=== PATIENT | female | born 2000 | race Caucasian/White ===

== ENCOUNTER 2019-01-04 21:18 | Emergency (ER) | payer OTHER ==
[~2019-01-04] VITALS: Ht 160 cm; Wt 68.0 kg
[2019-01-04 21:26] VITALS: BP 132/71
--- NOTE | 2019-01-04 21:26 | NUR ---
TO BED # 12 AMBULATORY , REPORT GIVEN TO SOURAV SAENZ
--- NOTE | 2019-01-04 21:35 | NUR ---
PT BIB SELF C/O HEADACHE X2 MONTHS AND NAUSEA X1 MONTH. PT STATES INTERMITTENT HEADACHE AND NAUSEA W/O VOMITING, +DIZZINESS, PAIN 0/10 AT THIS TIME. PT STATES IUD PLACE 04/01. CLEAR SPEECH, BREATHING EQUAL AND UNLABORED. BOWEL SOUNDS ACTIVE X4 QUAD. +MOIST MUCOUS MEMBRANES. PT ACTING APPROPRIATLY. PT IN GOWN, IN BED; BED IN LOWER LOCKED POSITION. PENDING ER MD OLIVER. PT ENCOURAGED TO PROVIDE URINE SAMPLE. PMH: DENIES RX: DENIES
[2019-01-04] MEDS ORDERED: ONDANSETRON 4 MG ODT PO ONE (22:20)
[2019-01-04] MEDS ORDERED: KETOROLAC 60 MG/2 ML VIAL IM ONE (22:20)
[2019-01-04 23:31] VITALS: BP 132/71
--- NOTE | 2019-01-04 23:32 | NUR ---
Patient discharged with v/s stable. Written and verbal after care instructions given and explained. Patient alert, oriented and verbalized understanding of instructions. Ambulatory with steady gait. All questions addressed prior to discharge. ID band removed. Patient advised to follow up with PMD. Rx of ZOFRAN, MOTRIN given. Patient educated on indication of medication including possible reaction and side effects. Opportunity to ask questions provided and answered.
== END 2019-01-04 23:31 | disposition home or self-care (01) ==
LOC: MED 21:18
DX: G44.209 Tension-type headache, unspecified, not intractable (principal)
CPT/HCPCS: 81002; 81025; 96372; 99283; J1885; Q0162

== ENCOUNTER 2019-03-08 11:27 | Emergency (ER) | payer OTHER ==
[~2019-03-08] VITALS: Ht 157.5 cm; Wt 61.7 kg
[2019-03-08 11:36] VITALS: BP 134/69
--- NOTE | 2019-03-08 11:54 | NUR ---
18 Y FEMALE BIB SELF C/O ABD PAIN STARTING AT 02:00 THIS MORNING WHILE AT WORK ALONG WITH DAIRRHEA AND NAUSEA, -VOMITING. PT REPORTS SHARP PAIN THROUGHOUT ENTIRE ABD 05/25. PT TX WITH TYLENOL WITH RELIEF. PT REPORTS FEVER OF 100.5 LAST NIGHT, CURRENT TEMP IS 98.6 ORAL. LAST BM OF DIARRHEA THIS AM. ABDOMEN IS SOFT AND FLAT, BOWEL SOUNDS ACTIVE IN ALL 4 QUADRANTS. VSS AT THIS TIME. PT AA0X4. BED IS DOWN, LOCKED, BED RAIL X 1, ERMD TO SEE PT. MEDHX:DENIES RX:TYLENOL
--- NOTE | 2019-03-08 12:17 | NUR ---
DR SAINZ AT BEDSIDE
[2019-03-08] MEDS ORDERED: DICYCLOMINE 20 MG/2 ML VIAL IM ONE (12:20)
[2019-03-08] MEDS ORDERED: ONDANSETRON 4 MG ODT PO ONE (12:20)
--- NOTE | 2019-03-08 12:30 | NUR ---
PT AMB TO RESTROOM WITH STEADY GAIT
[2019-03-08] MEDS ORDERED: KETOROLAC 30 MG/ML VIAL IM ONE (13:35)
--- NOTE | 2019-03-08 13:56 | NUR ---
VSS AT THIS TIME. PT AA0X4.
--- NOTE | 2019-03-08 14:30 | NUR ---
PAIN 0/10 AT THIS TIME
[2019-03-08 14:37] VITALS: BP 132/68
--- NOTE | 2019-03-08 14:37 | NUR ---
Patient discharged with v/s stable. Written and verbal after care instructions given and explained. Patient alert, oriented and verbalized understanding of instructions. Ambulatory with steady gait. All questions addressed prior to discharge. ID band removed. Patient advised to follow up with PMD. Rx of CHAVA MALCOLM given. Patient educated on indication of medication including possible reaction and side effects. Opportunity to ask questions provided and answered. PT GIVEN EXCUSE FROM WORK THROUGH 03/10/19, ADVISED TO REST AND HYDRATE.
== END 2019-03-08 14:37 | disposition home or self-care (01) ==
LOC: MED 11:27
DX: R10.84 Generalized abdominal pain (principal); R19.7 Diarrhea, unspecified; R50.9 Fever, unspecified; R42 Dizziness and giddiness; R11.0 Nausea
CPT/HCPCS: 81002; 81025; 96372; 99283; J0500; J1885; Q0162

== ENCOUNTER 2019-03-09 | Emergency (ER) | payer OTHER ==
[~2019-03-09] VITALS: Ht 157.5 cm; Wt 61.7 kg
[2019-03-09 00:15] VITALS: BP 112/65
--- NOTE | 2019-03-09 00:15 | NUR ---
TO BED # 06 AMBULATORY
[2019-03-09] MEDS ORDERED: NACL 0.9% 1,000 ML IV ONE (00:25)
--- NOTE | 2019-03-09 00:27 | NUR ---
Dr. Lerner evaluating patient at bedside.
--- NOTE | 2019-03-09 00:30 | NUR ---
18 Y/O F PRESENTED TO ED WITH C/O BLOOD IN STOOL. PT NOTICED BLOOD IN STOOL YESTERDAY. PT STATED "I'VE BEEN CONSTIPATED FOR A FEW DAYS. I STOPPED TAKING THE PAIN MEDICATION THE DOCTOR GAVE ME BECAUSE IT GAVE ME DIARRHEA." +NAUSEA. BOWEL SOUNDS PRESENT [id number]. ABDOMEN NON-TENDER. ERMD NOTIFIED. WILL CONTINUE TO MONITOR.
[2019-03-09 00:44] LABS: BASOPHILS % (AUTO) 0.3 % (0.0-2.0); EOSINOPHILS % (AUTO) 0.2 % (0.0-4.0); HEMOGLOBIN 13.2 g/dL (12.0-16.0); LYMPHOCYTES # (AUTO) 1.1 K/uL (2.5-16.5); LYMPHOCYTES % (AUTO) 18.7 % (20.5-51.1); MEAN CORPUSCULAR HEMOGLOBIN 30 pg (27-31); MEAN CORPUSCULAR HGB CONC 34 g/dL (33-37); MEAN CORPUSCULAR VOLUME 88.3 fL (80-94); MONOCYTES # (AUTO) 0.5 K/uL (0.8-1.0); MONOCYTES % (AUTO) 8.5 % (1.7-9.3); NEUTROPHILS # (AUTO) 4.4 K/uL (1.8-7.7); NEUTROPHILS % (AUTO) 72.3 % (42.2-75.2); PLATELET COUNT (AUTO) 183 K/uL (140-450); RED BLOOD CELL COUNT(AUTO) 4.42 MIL/uL (4.20-5.40); RED CELL DISTRIBUTION WIDTH 13.9 % (11.6-13.7); WHITE BLOOD COUNT (AUTO) 6.1 K/uL (4.5-11.0)
[2019-03-09 01:04] LABS: ANION GAP 13.5 (8-16); CARBON DIOXIDE 24.3 mmol/L (21-32); CREATININE 1.1 mg/dL (0.6-1.3); POTASSIUM 3.8 mmol/L (3.5-5.1)
[2019-03-09 01:09] LABS: ALBUMIN 3.6 g/dL (3.4-5.0); TOTAL BILIRUBIN 0.6 mg/dL (0.0-1.0)
--- NOTE | 2019-03-09 01:15 | NUR ---
XRAY AT BEDSIDE
[2019-03-09 01:44] VITALS: BP 112/65
--- NOTE | 2019-03-09 01:44 | NUR ---
Patient discharged with v/s stable. Written and verbal after care instructions given and explained. Patient alert, oriented and verbalized understanding of instructions. Ambulatory with steady gait. All questions addressed prior to discharge. ID band removed. Patient advised to follow up with PMD. Rx of IBUPROFEN, MIRALAX, WAS given. Patient educated on indication of medication including possible reaction and side effects. Opportunity to ask questions provided and answered. PT STATED HER PAIN DECREASED TO 3/10 PRIOR TO D/C. PT WAS EDUCATED ON OUTPATIENT CARE . PT UNDERSTOOD.
== END 2019-03-09 01:44 | disposition home or self-care (01) ==
LOC: MED
DX: K59.00 Constipation, unspecified (principal); K92.0 Hematemesis
CPT/HCPCS: 36415; 74018; 80053; 81025; 85025; 93005; 96360; 99284; J7030; Q0092; 81002

== ENCOUNTER 2019-04-04 13:01 | Emergency (ER) | payer OTHER ==
[~2019-04-04] VITALS: Ht 157.5 cm; Wt 65.8 kg
[2019-04-04 13:25] VITALS: BP 98/56
[2019-04-04 14:26] LABS: APPEARANCE,URINE SL CLOUDY (CLEAR); BILIRUBIN,URINE NEGATIVE (NEGATIVE); BLOOD, URINE 1+ (NEGATIVE); COLOR,URINE YELLOW (YELLOW); LEUKOCYTE ESTERASE ,URINE 1+ (NEGATIVE); NITRITE, URINE NEGATIVE (NEGATIVE); UGLUCOSE NEGATIVE (NEGATIVE)
[2019-04-04 14:39] LABS: WBC,URINE 16-25 (MOD) /HPF (0-5)
[2019-04-04 14:44] LABS: BARBITURATE, URINE NEG. ng/ml (NEG <=200); BENZODIAZEPINE, URINE NEG. ng/mL (NEG <=200); CANNABINOID, URINE NEG. ng/mL (NEG <=50); COCAINE, URINE NEG. ng/mL (NEG <=300); OPIATE, URINE NEG. ng/mL (NEG <=2000); PHENCYCLIDINE SCREEN,URINE NEG. ng/mL (NEG <=25)
[2019-04-04] MEDS ORDERED: KETOROLAC 60 MG/2 ML VIAL IM ONE (15:30)
[2019-04-04] MEDS ORDERED: cefTRIAXone 1,000 MG in LIDOCAINE 1% ***ER ONLY *** 2.1 ML IM ONE (15:30)
[2019-04-04] MEDS ORDERED: hydrOXYzine HCL 25 MG TAB PO ONE (15:30)
[2019-04-04] MEDS ORDERED: LEVOFLOXACIN 500 MG TAB PO ONE (15:30)
--- NOTE | 2019-04-04 15:30 | NUR ---
BIB SELF. C/O DYSURIA X 1 WEEK, LEFT BREAST SORENESS X 4 DAYS, VAGINAL ITCHING, ABDOMINAL PAIN X 2 DAYS NAUSEA. PMH: DENIES MED RX: ZOFRAN ALLERGIES: DENIES
[2019-04-04] MEDS ORDERED: cefTRIAXone 1,000 MG VIAL ONE (15:57)
[2019-04-04] MEDS ORDERED: LIDOCAINE MPF 1% - 5 mL VIAL 5 ML ONE (15:59)
[2019-04-04 16:35] VITALS: BP 102/60
--- NOTE | 2019-04-04 16:35 | NUR ---
Patient discharged with v/s stable. Written and verbal after care instructions given and explained. Patient alert, oriented and verbalized understanding of instructions. Ambulatory with steady gait. All questions addressed prior to discharge. ID band removed. Patient advised to follow up with PMD. Rx of ACYCLOVIR, LEVAQUIN given. Patient educated on indication of medication including possible reaction and side effects. Opportunity to ask questions provided and answered.
--- NOTE | 2019-04-07 08:56 | NUR ---
Pt called, no answer, left voicemail to return call.
== END 2019-04-04 16:35 | disposition home or self-care (01) ==
LOC: MED 13:01
DX: N30.90 Cystitis, unspecified without hematuria (principal)
CPT/HCPCS: 80305; 81001; 81025; 87086; 87186; 96372; 99283; J0696; J1885; J2001

== ENCOUNTER 2019-07-27 21:28 | Emergency (ER) | payer OTHER ==
[~2019-07-27] VITALS: Ht 157.5 cm; Wt 65.8 kg
[2019-07-27 21:50] VITALS: BP 109/57
--- NOTE | 2019-07-27 21:50 | NUR ---
TO BED # 10 AMBULATORY
--- NOTE | 2019-07-27 22:13 | NUR ---
18 Y/O FEMALE PRESENTS TO ED, C/O OF N/V X1 WEEK. PT STATES HAVING FLU LIKE SYMPTOMS FOR 1 WEEK WITH BLOODY MUCUS AND SPIT. DENIES ANY FLU SYMPTOMS. PT DENIES ANY ABDOMINAL PAIN. BS ACTIVE X4 QUADRANTS. LAST VOMITING EPISODE WAS 10MIN PRIOR TO TRIAGE ASSESSMENT. PT VSS. ERMD AWARE. WILL CONTINUE TO MONITOR.
[2019-07-27 22:53] VITALS: BP 119/86
--- NOTE | 2019-07-27 22:53 | NUR ---
PT DISCHARGED WITH PAPERWORK. RX FLONASE. EDUCATED PT REGARDING MEDICATION AND S/E. EDUCATED PT REGARDING D/C DIAGNOSIS AND INSTRUCTIONS. PT VERBALIZED UNDERSTANDING OF TEACHING. TOLD PT TO FOLLOW UP WITH PCP AND AND WHEN TO RETURN TO ED. PT VSS. DENIES ANY PAIN. NO N/V. ALL QUESTIONS ANSWERED.
== END 2019-07-27 22:53 | disposition home or self-care (01) ==
LOC: MED 21:28
DX: R04.0 Epistaxis (principal); R04.2 Hemoptysis; R11.0 Nausea
CPT/HCPCS: 81025; 99283

== ENCOUNTER 2020-03-14 21:58 | Emergency (ER) | payer OTHER ==
[~2020-03-14] VITALS: Ht 157.5 cm; Wt 67.6 kg
[2020-03-14 22:08] VITALS: BP 112/55
--- NOTE | 2020-03-14 22:15 | NUR ---
PT AMBULATED TO BED 01 WITH STEADY GAIT.
--- NOTE | 2020-03-14 22:28 | NUR ---
19 Y/O FEMALE PRESENTS TO ER WITH C/O OF CHEST, AND BACK PAIN X 3 DAYS. 0/10 CHEST PAIN, 7/10 LOW BACK PAIN. PT DENIES INJURY TO AREA, NAUSEA, VOMITING, DIARRHEA, SOB, COUGH. CAP REFILL < 3SEC, VSS, R/R EQUAL AND UNLABORED. DENIES DYSURIA, HEMATURIA. LMP 03/07/20. SIDE RAIL X1, BED IN LOW POSITION, WILL CONTINUE TO MONITOR. NKDA DENIES PMH
[2020-03-14] MEDS ORDERED: IBUPROFEN 400 MG TAB PO ONE (23:30)
[2020-03-14] MEDS ORDERED: ACETAMINOPHEN 325 MG TAB PO ONE (23:30)
--- NOTE | 2020-03-15 00:12 | NUR ---
Patient discharged with v/s stable. Written and verbal after care instructions given and explained. Patient alert, oriented and verbalized understanding of instructions. Ambulatory with steady gait. All questions addressed prior to discharge. ID band removed. Patient advised to follow up with PMD. Rx of KEFLEX AND PYRIDIUM given. Patient educated on indication of medication including possible reaction and side effects. Opportunity to ask questions provided and answered.
[2020-03-15 00:14] VITALS: BP 112/55
== END 2020-03-15 00:12 | disposition home or self-care (01) ==
LOC: MED 21:58
DX: R07.89 Other chest pain (principal); N39.0 Urinary tract infection, site not specified
CPT/HCPCS: 81002; 81025; 93005; 99283

== ENCOUNTER 2021-08-28 13:40 | Emergency (ER) | payer MEDICAID, OTHER ==
[~2021-08-28] VITALS: Ht 157.5 cm; Wt 73.9 kg
[2021-08-28 13:55] VITALS: BP 123/69
[2021-08-28 14:42] LABS: BASOPHILS % (AUTO) 0.4 % (0.0-2.0); EOSINOPHILS # (AUTO) 0.1 K/uL (0-0.4); EOSINOPHILS % (AUTO) 0.8 % (0.0-4.0); HEMATOCRIT 37.5 % (36-48); LYMPHOCYTES % (AUTO) 27.2 % (20.5-51.1); MEAN CORPUSCULAR HEMOGLOBIN 30 pg (27-31); MEAN CORPUSCULAR HGB CONC 35 g/dL (33-37); MONOCYTES # (AUTO) 0.4 K/uL (0.8-1.0); MONOCYTES % (AUTO) 5.2 % (1.7-9.3); NEUTROPHILS # (AUTO) 4.9 K/uL (1.8-7.7); NEUTROPHILS % (AUTO) 66.4 % (42.2-75.2); PLATELET COUNT (AUTO) 249 K/uL (140-450); RED BLOOD CELL COUNT(AUTO) 4.31 MIL/uL (4.20-5.40); RED CELL DISTRIBUTION WIDTH 13.1 % (11.6-13.7); WHITE BLOOD COUNT (AUTO) 7.4 K/uL (4.8-10.8)
[2021-08-28 15:05] LABS: ALBUMIN 3.3 g/dL (3.4-5.0); ANION GAP 12.3 (8-16); CARBON DIOXIDE 24.7 mmol/L (21-32); CREATININE 0.7 mg/dL (0.6-1.3); TOTAL BILIRUBIN 0.2 mg/dL (0.0-1.0)
[2021-08-28 16:37] VITALS: BP 122/70
== END 2021-08-28 16:32 | disposition home or self-care (01) ==
LOC: MED 13:40
DX: O26.891 Other specified pregnancy related conditions, first trimester (principal); O23.41 Unspecified infection of urinary tract in pregnancy, first trimester; Z3A.01 Less than 8 weeks gestation of pregnancy
CPT/HCPCS: 36415; 76817; 80053; 81002; 81025; 84702; 85025; 86900; 86901; 96372; 99284; Q0092

== ENCOUNTER 2021-08-30 20:08 | Emergency (ER) | payer MEDICAID ==
[~2021-08-30] VITALS: Ht 157.5 cm; Wt 75.3 kg
[2021-08-30 20:25] VITALS: BP 121/90
--- NOTE | 2021-08-30 20:28 | NUR ---
to lobby a/w bed ambulatory
--- NOTE | 2021-08-30 21:35 | NUR ---
PT TAKEN TO BED 2
--- NOTE | 2021-08-30 21:45 | NUR ---
ALERT AND ORIENTED X4. PT COMPLAINING OF LOWER ABDOMINAL PAIN X6 DAYS, CRAMPING IN QUALITY, 510. PT DENIES ANY VAGINAL BLEEDING OR DISCHARGE. STATES THAT SHE WAS SEEN AT THE ED 2 DAYS AGO AND WAS TOLD TO FOLLOW-UP TODAY TO "RULE OUT MISCARRIAGE" AND GET MORE BLOOD WORK DONE.
--- NOTE | 2021-08-30 22:32 | NUR ---
Dr. Clark examining patient.
--- NOTE | 2021-08-31 01:09 | NUR ---
Patient discharged with v/s stable. Written and verbal after care instructions given and explained. Patient verbalized understanding. Ambulatory with steady gait. All questions addressed prior to discharge. Advised to follow up with PMD.
[2021-08-31 01:12] VITALS: BP 121/90
== END 2021-08-31 01:09 | disposition home or self-care (01) ==
LOC: MED 20:08
DX: O26.891 Other specified pregnancy related conditions, first trimester (principal); R10.2 Pelvic and perineal pain; F12.90 Cannabis use, unspecified, uncomplicated; Z3A.01 Less than 8 weeks gestation of pregnancy
CPT/HCPCS: 36415; 81002; 81025; 84702; 99283

== ENCOUNTER 2021-09-08 12:37 | Emergency (ER) | payer MEDICAID ==
[~2021-09-08] VITALS: Ht 157.5 cm; Wt 76.4 kg
[2021-09-08 12:40] VITALS: BP 108/69
--- NOTE | 2021-09-08 12:51 | NUR ---
Pt ambulated to bed 08 with steady/even gait
--- NOTE | 2021-09-08 12:57 | NUR ---
20 y/o F BIB self from home c/o vaginal bleeding x 2 days, low back pain x 10 days. Patient A&Ox4, ambulatory reports vaginal bleeding "light/spotting" at 1000 on 09/07. Pt noted heavier bleeding this morning "not to the point of saturating a pad yet." Pt reports no clots, states vaginal discharge yesterday white/thick, - odor. Denies vaginal discomfort/pain, dysuria, nausae, vomitnig, diarrhrea, abdominal pain, fever/chills. States intermittent low back pain since last visit here 08/30; worsens with ambulating and alleviates with rest; 02/22, pressure/intermittent, non-radiating pain. LMP 07/21/21, T2. Pt in gown; bed locked in lowest position, side rails x 1. PMH/Sx/Meds: Denies NKDA
--- NOTE | 2021-09-08 13:58 | NUR ---
UA collected, handed to CPT Lorena at ER bedside
--- NOTE | 2021-09-08 14:15 | NUR ---
Dr. Menjivar is evaluating patient at bedside
--- NOTE | 2021-09-08 15:15 | NUR ---
PT AMBULATED TO RESTROOM WITH A STEADY GAIT.
--- NOTE | 2021-09-08 15:55 | NUR ---
Patient states 0/10 pain at this time.
[2021-09-08 15:57] VITALS: BP 114/73
--- NOTE | 2021-09-08 15:57 | NUR ---
Patient discharged with v/s stable. Written and verbal after care instructions given and explained. Patient verbalized understanding. Ambulatory with steady gait. All questions addressed prior to discharge. Advised to follow up with PMD and [facility]. Work note provided.
== END 2021-09-08 15:57 | disposition home or self-care (01) ==
LOC: MED 12:37
DX: O46.8X1 Other antepartum hemorrhage, first trimester (principal); O26.891 Other specified pregnancy related conditions, first trimester; R10.32 Left lower quadrant pain; M54.9 Dorsalgia, unspecified
CPT/HCPCS: 36415; 76817; 81025; 99284; Q0092

== ENCOUNTER 2022-10-27 01:47 | Emergency (ER) | payer MEDICAID ==
[~2022-10-27] VITALS: Ht 157.5 cm; Wt 74.8 kg
[2022-10-27 01:55] VITALS: BP 116/83
--- NOTE | 2022-10-27 02:00 | NUR ---
TO LOBBY A/W BED AMBULATORY
--- NOTE | 2022-10-27 02:05 | NUR ---
PT TO BED #4
--- NOTE | 2022-10-27 02:06 | NUR ---
Patient resting in bed, A/Ox4, chest rise and fall symmetrical, no s/s of distress, patient on monitor.
[2022-10-27] MEDS ORDERED: BUPIVACAINE-MPF 0.5% 30 ML VIAL INJ ONE (02:15)
[2022-10-27] MEDS ORDERED: KETOROLAC 15 MG/ML VIAL IM ONE (03:05)
[2022-10-27] MEDS ORDERED: KETOROLAC 30 MG/ML VIAL ONE (03:35)
[2022-10-27] MEDS ORDERED: IBUP-2213 PO (03:40)
[2022-10-27 04:07] VITALS: BP 121/74
== END 2022-10-27 02:05 | disposition home or self-care (01) ==
LOC: MED 01:47
DX: K02.9 Dental caries, unspecified (principal); Z79.899 Other long term (current) drug therapy
CPT/HCPCS: 64400; 96372; 99284; J1885; J3490; 99283

== ENCOUNTER 2024-02-22 21:52 | Emergency (ER) | payer MEDICAID, OTHER ==
[~2024-02-22] VITALS: Ht 157.5 cm; Wt 82.6 kg
[~2024-02-22 21:52] MED LIST: IBUP-2213 PO
[2024-02-22 22:11] VITALS: BP 109/83; PULSE 90; RESP 17; TEMP 97.9; O2SAT 98
[2024-02-22 23:10] LABS: APPEARANCE,URINE CLEAR (CLEAR); BILIRUBIN,URINE NEGATIVE (NEGATIVE); BLOOD, URINE NEGATIVE (NEGATIVE); COLOR,URINE YELLOW (YELLOW); LEUKOCYTE ESTERASE ,URINE NEGATIVE (NEGATIVE); NITRITE, URINE NEGATIVE (NEGATIVE); PH,URINE 6.5 (5.0-9.0); PROTEIN,URINE NEGATIVE (NEGATIVE); UGLUCOSE NEGATIVE (NEGATIVE); UROBILINOGEN,URINE 0.2 EU/dL (0.2 - 1)
[2024-02-22 23:26] LABS: BASOPHILS % (AUTO) 0.3 % (0.0-2.0); EOSINOPHILS # (AUTO) 0.1 K/uL (0-0.4); EOSINOPHILS % (AUTO) 0.9 % (0.0-4.0); HEMATOCRIT 39.6 % (36-48); HEMOGLOBIN 13.8 g/dL (12.0-16.0); LYMPHOCYTES # (AUTO) 2.7 K/uL (2.5-16.5); LYMPHOCYTES % (AUTO) 30.5 % (20.5-51.1); MEAN CORPUSCULAR HEMOGLOBIN 31 pg (27-31); MEAN CORPUSCULAR HGB CONC 35 g/dL (33-37); MEAN CORPUSCULAR VOLUME 89.5 fL (80-94); MONOCYTES # (AUTO) 0.6 K/uL (0.8-1.0); MONOCYTES % (AUTO) 6.3 % (1.7-9.3); NEUTROPHILS # (AUTO) 5.4 K/uL (1.8-7.7); PLATELET COUNT (AUTO) 267 K/uL (140-450); RED BLOOD CELL COUNT(AUTO) 4.42 MIL/uL (4.20-5.40); RED CELL DISTRIBUTION WIDTH 13.7 % (11.6-13.7); WHITE BLOOD COUNT (AUTO) 8.8 K/uL (4.8-10.8)
[2024-02-22 23:37] LABS: ANION GAP 12.9 (8-16); CALCIUM 9.8 mg/dL (8.5-10.1); CARBON DIOXIDE 25.1 mmol/L (21-32); CREATININE 0.8 mg/dL (0.6-1.3)
[2024-02-23 01:07] VITALS: BP 120/83; PULSE 88; RESP 17; TEMP 97.5; O2SAT 98
== END 2024-02-23 02:22 | disposition home or self-care (01) ==
LOC: MED 21:52
DX: O20.0 Threatened abortion (principal); Z3A.01 Less than 8 weeks gestation of pregnancy; Z79.1 Long term (current) use of non-steroidal anti-inflammatories (NSAID)
CPT/HCPCS: 36415; 76817; 80048; 81003; 81025; 84702; 85025; 86900; 86901; 99284; Q0092